=== PATIENT | male | born 1970 | race Caucasian/White ===

== ENCOUNTER 2016-10-20 02:23 | Emergency (ER) | payer SELFPAY ==
[~2016-10-20] VITALS: Ht 172.7 cm; Wt 96.5 kg
[~2016-10-20 02:23] MED LIST: CIPROFLOXACN500 MG PO; FLEXERIL OR; NAPROSYN500 MG PO; NO; ULTRAM50 M1 PO; ZOFRAN ODT4 MG PO
[2016-10-20 02:56] LABS: HEMATOCRIT 39.8 % (39.0-50.0); HEMOGLOBIN 13.7 g/dl (14.0-18.0); IMMATURE GRANULOCYTES 0.4 % (0.0-1.0); MEAN CELL VOLUME 80.9 fL CALC (80.0-100.0); MEAN CORPUSCULAR HGB 27.8 pG CALC (26.0-32.0); MEAN CORPUSCULAR HGB CONC 34.4 g/L CALC (32.0-36.0); NEUT# 10.03 thou/uL (1.82-7.42); RED BLOOD COUNT 4.92 mill/uL (4.70-6.10); RED CELL DISTRI WIDTH 13.2 % (11.5-15.5)
[2016-10-20 03:12] LABS: ALBUMIN 4.6 g/dL (3.2-5.0); ALKALINE PHOSPHATASE 131 u/l (38-126); AMYLASE < 30 u/l (30-110); ANION GAP 19 (6-22 (CALC)); BILIRUBIN, TOTAL 0.7 mg/dL (0.0-1.4); BUN 14 mg/dL (9-20); BUN/CREATININE RATIO 17 (12-20 (CALC)); CALCIUM 9.7 mg/dL (8.4-10.2); CARBON DIOXIDE 21 mmol/l (22-30); CHLORIDE 104 mmol/l (95-108); CREATININE 0.9 mg/dL (0.7-1.3); GFR > 60 ML/MIN (>=60 (CALC)); GFR FOR AFR.AMER. > 60 ML/MIN (>=60 (CALC)); GLUCOSE 121 mg/dL (75-110); LIPASE 44 u/l (23-300); POTASSIUM 4.1 mmol/l (3.5-5.1); SGOT/AST 22 u/l (17-59); SGPT/ALT 33 u/l (21-72); SODIUM 140 mmol/l (137-146); TOTAL PROTEIN 8.1 g/dL (6.3-8.2)
[2016-10-20 03:38] LABS: URINE BILIRUBIN - DIPSTICK NEGATIVE (NEGATIVE); URINE BLOOD DIPSTICK LARGE (NEGATIVE); URINE CLARITY CLOUDY; URINE COLOR YELLOW; URINE GLUCOSE - DIPSTICK NEGATIVE (NEGATIVE); URINE KETONE 40 mg/dL (NEGATIVE); URINE LEUK ESTERASE NEGATIVE (NEGATIVE); URINE NITRITE - DIPSTICK NEGATIVE (Negative); URINE PH 8.5 (4.5-8.0); URINE PROTEIN - DIPSTICK NEGATIVE (NEG-TRACE); URINE SPECIFIC GRAVITY 1.015; URINE UROBILINOGEN - DIPSTICK 0.2 E.U./dL (0.2)
[2016-10-20 03:45] LABS: URINE AMORPH SEDIMENT MANY hpf (NONE-FER); URINE BACTERIA FEW hpf; URINE MUCUS FEW hpf (NONE-FEW); URINE RBC 50-100 RBC/hpf (0-5); URINE SQUAMOUS EPITHELIAL CELL MODERATE EPI/hpf (0-FEW)
[2016-10-20] MEDS ORDERED: NORCO1 TA1 PO (03:46)
[2016-10-20 04:09] VITALS: BP 108/56
== END 2016-10-20 04:09 | disposition home or self-care (01) | DRG 694 ==
LOC: ED 02:23
PROVIDERS: Emergency Medicine
DX: N13.2 Hydronephrosis with renal and ureteral calculous obstruction (principal); R10.31 Right lower quadrant pain

== ENCOUNTER 2016-10-26 00:49 | Emergency (ER) | payer SELFPAY ==
[~2016-10-26] VITALS: Ht 172.7 cm; Wt 99.6 kg
[~2016-10-26 00:49] MED LIST changes: +NORCO1 TA1 PO
[2016-10-26] MEDS ORDERED: LORTAB 10-325 M1 TAB PO (02:09)
[2016-10-26 02:11] VITALS: BP 132/91
== END 2016-10-26 02:15 | disposition home or self-care (01) | DRG 563 ==
LOC: ED 00:49
DX: S92.335A Nondisplaced fracture of third metatarsal bone, left foot, initial encounter for closed fracture (principal); S92.345A Nondisplaced fracture of fourth metatarsal bone, left foot, initial encounter for closed fracture; V98.8XXA Other specified transport accidents, initial encounter; Y93.89 Activity, other specified; Y92.89 Other specified places as the place of occurrence of the external cause

== ENCOUNTER 2019-06-02 | Emergency (ER) | payer SELFPAY ==
[~2019-06-02] MED LIST changes: +LORTAB 10-325 M1 TAB PO
[2019-06-02] MEDS ORDERED: VOLTAREN - GENE75 MG PO (19:45)
== END 2019-06-02 19:55 | disposition home or self-care (01) | DRG 556 ==
DX: M25.561 Pain in right knee (principal); F17.210 Nicotine dependence, cigarettes, uncomplicated

== ENCOUNTER 2022-12-21 17:55 | Emergency (ER) | payer OTHER ==
[~2022-12-21] VITALS: Ht 172.7 cm; Wt 90.0 kg
[~2022-12-21 17:55] MED LIST changes: +VOLTAREN - GENE75 MG PO
[2022-12-21] MEDS ORDERED: TRAMADOL HYDROC50 M1 PO (19:51)
[2022-12-21] MEDS ORDERED: NAPROXEN500 MG PO (19:51)
[2022-12-21] MEDS ORDERED: PENICILLN VK500 MG PO (20:01)
[2022-12-21 20:05] VITALS: BP 132/74
== END 2022-12-21 20:06 | disposition home or self-care (01) | DRG 605 ==
LOC: ED 17:55
DX: S00.83XA Contusion of other part of head, initial encounter (principal); F17.200 Nicotine dependence, unspecified, uncomplicated; Y04.8XXA Assault by other bodily force, initial encounter

== ENCOUNTER 2023-06-15 09:31 | Emergency (ER) | payer OTHER ==
[~2023-06-15] VITALS: Ht 172.7 cm; Wt 92.0 kg
[~2023-06-15 09:31] MED LIST changes: +NAPROXEN500 MG PO; +PENICILLN VK500 MG PO; +TRAMADOL HYDROC50 M1 PO
[2023-06-15 09:36] VITALS: BP 115/73
[2023-06-15 09:46] VITALS: BP 112/74
[2023-06-15 10:00] VITALS: BP 103/70
[2023-06-15 10:00] LABS: BASO% 0.3 % (0-3); EOS% 1.6 % (0-8); HEMATOCRIT 45.3 % (39.0-50.0); HEMOGLOBIN 15.1 g/dl (14.0-18.0); IMMATURE GRANULOCYTES 0.1 % (0.0-5.0); LYMPH% 9.5 % (15-41); MEAN CELL VOLUME 84.8 fL CALC (80.0-100.0); MEAN CORPUSCULAR HGB 28.3 pG CALC (26.0-32.0); MEAN CORPUSCULAR HGB CONC 33.3 g/dL CAL (32.0-36.0); MONO% 4.6 % (2-13); NEUT# 8.66 thou/uL (1.82-7.42); NEUT% 83.9 % (42-76); RED BLOOD COUNT 5.34 mill/uL (4.70-6.10); RED CELL DISTRI WIDTH 12.4 % (11.5-15.5)
[2023-06-15 10:15] VITALS: BP 114/75
[2023-06-15 10:18] LABS: ALKALINE PHOSPHATASE 89 u/l (38-126); BILIRUBIN, TOTAL 0.5 mg/dL (0.2-1.3); BUN 13 mg/dL (9-20); BUN/CREATININE RATIO 17 (12-20 (CALC)); CHLORIDE 106 mmol/l (95-108); CREATININE 0.8 mg/dL (0.7-1.3); ETHYL ALCOHOL 0 mg/dl (0-30); GFR FOR AFR.AMER. > 60 ML/MIN (>=60 (CALC)); GFR OTHER RACES > 60 ML/MIN (>=60 (CALC)); POTASSIUM 4.5 mmol/l (3.5-5.1); SODIUM 137 mmol/l (137-146); TOTAL PROTEIN 7.1 g/dL (6.3-8.2)
[2023-06-15 10:25] LABS: ANION GAP 10 (6-22 (CALC)); CARBON DIOXIDE 26 mmol/l (22-30); SGOT/AST 63 u/l (17-59)
[2023-06-15 10:29] VITALS: BP 114/75
== END 2023-06-15 10:20 | disposition left against medical advice (07) | DRG 918 ==
LOC: ED 09:31
PROVIDERS: Family Medicine
DX: T40.1X1A Poisoning by heroin, accidental (unintentional), initial encounter (principal); F17.200 Nicotine dependence, unspecified, uncomplicated; Z20.822 Contact with and (suspected) exposure to COVID-19; Z53.29 Procedure and treatment not carried out because of patient's decision for other reasons

== ENCOUNTER 2024-05-25 07:45 | Emergency (ER) | payer OTHER ==
[~2024-05-25] VITALS: Ht 172.7 cm; Wt 91.6 kg
[2024-05-25 07:52] VITALS: BP 128/101
[2024-05-25 08:00] VITALS: BP 136/94
[2024-05-25] MEDS ORDERED: IBUPROFEN 800 MG/TAB PO ONE (08:00)
[2024-05-25] MEDS ORDERED: oxyCODONE 5MG/ ACETAMINOPHEN 325MG TAB PO ONE (08:00)
[2024-05-25] MEDS ORDERED: AMOXICILLIN & POT CLAVULANATE 875 MG/TAB PO ONE (08:00)
[2024-05-25] MEDS ORDERED: PROTONIX40 MG PO (08:02)
[2024-05-25] MEDS ORDERED: AMOX/K CLAV875 M1 PO (08:02)
[2024-05-25] MEDS ORDERED: MOTRIN800 MG PO (08:02)
[2024-05-25] MEDS ORDERED: PERCOCET 5/325M1 TAB PO (08:02)
[2024-05-25 08:15] VITALS: BP 128/101
== END 2024-05-25 08:15 | disposition home or self-care (01) ==
LOC: ED 07:45
DX: K02.9 Dental caries, unspecified (principal); K05.10 Chronic gingivitis, plaque induced; F17.200 Nicotine dependence, unspecified, uncomplicated